=== PATIENT | male | born 1955 | race Caucasian/White ===

== ENCOUNTER 2017-02-21 11:53 | Day surgery (SDC) | payer BC ==
[2017-02-21] VITALS (9 sets, daily range): BP systolic 123–141; BP diastolic 54–98; PULSE 65–84; TEMP 97.4–98.7
[~2017-02-21] VITALS: Ht 182.9 cm; Wt 86.1 kg
[~2017-02-21 11:53] MED LIST: ASPIRIN 81M81 MG/TA2 PO; COLACE 100100 MG/CAP PO; FOLIC ACID0.8 MG PO; MULTIPLE VITAMI1 CAP PO; NATURE'S BLEND100 M2 PO; NO HOME MEDICATIONS; NORCO 325 MG-51 TAB PO; PYRIDIUM 100MG100 MG PO; VITAMIN B12500 MCG PO; VITAMIN B225 MG PO; VITAMIN D3400 I1 PO; XARELTO15 MG PO
[2017-02-21] MEDS ORDERED: MULTI VITAMINS1 TAB PO (12:15)
[2017-02-21] MEDS ORDERED: VITAMIN B COMPL1 TA1 PO (12:16)
[2017-02-21] MEDS ORDERED: OMEGA-31 SGL PO (12:16)
== END 2017-02-21 19:30 | disposition home or self-care (01) ==
LOC: SDCO 11:53 → SURG 15:43 → SDCO 19:30
DX: C67.9 Malignant neoplasm of bladder, unspecified (principal); E78.5 Hyperlipidemia, unspecified; Z79.82 Long term (current) use of aspirin; Z79.899 Other long term (current) drug therapy
CPT/HCPCS: OP; J0690; J2405; J2704; J3010; J7120; J9280; Q9967

== ENCOUNTER 2018-07-13 08:35 | Day surgery (SDC) | payer BC ==
[~2018-07-13] VITALS: Ht 183 cm; Wt 81.3 kg
[~2018-07-13 08:35] MED LIST changes: +MULTI VITAMINS1 TAB PO; +OMEGA-31 SGL PO; +VITAMIN B COMPL1 TA1 PO
[2018-07-13 09:39] LABS: HEMATOCRIT 41.2 % (42.0-52.0); HEMOGLOBIN 14.3 g/dl (13.5-18.0); MEAN CELL VOLUME 94 fl (80.0-100.0); MEAN CORPUSCULAR HEMOGLOBIN 33 pg (27.0-31.0); MEAN CORPUSCULAR HGB CONC 35 g/dl (33.0-37.0); PLATELET COUNT 208 K/mm3 (130-400); RED BLOOD COUNT 4.38 M/mm3 (4.20-5.60); REDCELL DISTRIBUTION WIDTH-CV 12.2 % (11.5-14.5)
[2018-07-13 09:41] LABS: PROTHROMBIN TIME 10.9 SECONDS (9.7-12.8)
[2018-07-13 09:48] LABS: CALCIUM 9.1 mg/dL (8.4-10.2); CREATININE, serum 0.96 mg/dL (0.66-1.25); POTASSIUM 4.4 mmol/L (3.4-5.0)
[2018-07-13] MEDS ORDERED: [UNRECOGNIZED DRUG - OTHER] (10:37)
[2018-07-13 10:54] VITALS: BP 141/74; PULSE 72; TEMP 97.9
[2018-07-13 13:56] VITALS: BP 161/89; PULSE 75
[2018-07-13 15:32] VITALS: BP 138/78; PULSE 63; TEMP 98
[2018-07-13 19:12] VITALS: BP 144/78; PULSE 61; TEMP 97.9
[2018-07-14 03:35] VITALS: BP 120/73; PULSE 60; TEMP 97.8
[2018-07-14 07:59] VITALS: BP 128/70; PULSE 62; TEMP 98.1
[2018-07-14] MEDS ORDERED: CEPHALEXIN500 M1 PO (11:16)
[2018-07-14 11:19] VITALS: BP 114/70; PULSE 79; TEMP 98.5
== END 2018-07-14 12:42 | disposition home or self-care (01) ==
LOC: COL.CAR 08:35 → MEDICAL 15:08 → COL.CAR 07-14 12:42
PROVIDERS: Internal Medicine Cardiovascular Disease
DX: I44.2 Atrioventricular block, complete (principal); Z86.718 Personal history of other venous thrombosis and embolism; E78.5 Hyperlipidemia, unspecified
CPT/HCPCS: OP; J0690; J2250; J3010; J7030; Q9967